=== PATIENT | female | born 1965 | race American Indian/Alaskan Native ===

== ENCOUNTER 2018-09-07 07:36 | Emergency (ER) | payer MEDICARE ==
--- NOTE | 2018-09-07 08:54 | XRay Report ---
RIGHT KNEE, 3 views: History: Fall. The bony architecture is intact without evidence of fracture or dislocation. No significant soft tissue abnormality is seen. IMPRESSION: Unremarkable right knee.
--- NOTE | 2018-09-07 09:10 | Emergency Department Report ---
ED Lower Extremity HPI - General Chief Complaint: Extremity Injury, Lower Stated Complaint: RT KNEE INJURY/PAIN Time Seen by Provider: 09/07/18 08:24 Source: patient Mode of arrival: Ambulatory Limitations: No Limitations - History of Present Illness Initial Comments: She is a 52-year-old female who presents to the ED stating she tripped and accidentally fell yesterday while she was at dialysis. Patient states that pain localized to her anterior knee on the right. Patient states that she is able to walk without any problems. Patient states that pain is throbbing in nature and aching. Patient states this felt worse today than he did yesterday so she came in to be evaluated. She denies hitting her head or loss of consciousness after fall. MD Complaint: knee injury - Related Data Previous Rx's Medication Instructions Recorded Last Taken Type Naproxen [Naprosyn] 500 mg PO BID #30 tablet 09/07/18 Unknown Rx Allergies Allergy/AdvReac Type Severity Reaction Status Date / Time pollen extracts Allergy Unknown Verified 09/07/18 07:38 ED Review of Systems ROS: Stated complaint: RT KNEE INJURY/PAIN Other details as noted in HPI Comment: All other systems reviewed and negative ED Past Medical Hx - Medications Home Medications: Home Medications Medication Instructions Recorded Confirmed Last Taken Type Naproxen [Naprosyn] 500 mg PO BID #30 tablet 09/07/18 Unknown Rx ED Physical Exam - General Limitations: No Limitations General appearance: alert, in no apparent distress - Head Head exam: Present: atraumatic, normocephalic - Eye Eye exam: Present: normal appearance - ENT ENT exam: Present: mucous membranes moist - Neck Neck exam: Present: normal inspection - Respiratory Respiratory exam: Present: normal lung sounds bilaterally. Absent: respiratory distress - Cardiovascular Cardiovascular Exam: Present: regular rate, normal rhythm. Absent: systolic murmur, diastolic murmur, rubs, gallop - GI/Abdominal GI/Abdominal exam: Present: soft, normal bowel sounds - Extremities Exam Extremities exam: Present: normal inspection - Expanded Lower Extremity Exam Right Knee exam: Present: normal inspection, full ROM, tenderness (anterior right knee). Absent: swelling, abrasion, laceration, deformity, dislocation, erythema Lower Leg exam: Present: normal inspection, full ROM Ankle exam: Present: normal inspection, full ROM Foot/Toe exam: Present: normal inspection, full ROM Neuro vascular tendon exam: Present: no vascular compromise Gait: Positive: observed and normal - Back Exam Back exam: Present: normal inspection - Neurological Exam Neurological exam: Present: alert, oriented X3 - Psychiatric Psychiatric exam: Present: normal affect, normal mood - Skin Skin exam: Present: warm, dry, intact, normal color. Absent: rash ED Course Vital Signs 09/07/18 07:52 Temperature 98.1 F Pulse Rate 116 H Respiratory 20 Rate Blood Pressure 148/98 [Right] O2 Sat by Pulse 95 Oximetry ED Lower Extremity MDM - Radiology Data Radiology results: report reviewed, image reviewed RIGHT KNEE, 3 views: History: Fall. The bony architecture is intact without evidence of fracture or dislocation. No significant soft tissue abnormality is seen. IMPRESSION: Unremarkable right knee. Transcribed By: TTR Dictated By: TONY CARDOSO JR, MD Electronically Authenticated By: TONY CARDOSO JR, MD Signed Date/Time: 09/07/18 0850 - Medical Decision Making 52-year-old female presents with knee pain. X-ray shows no acute fracture suspicion Discussed with patient to apply heat therapy 3 times a day apply compression with Slade bandage. Patient was given Slade bandage wrap prior to leaving ER. Discussed follow-up with orthopedic doctor. Discussed follow-up with her primary care physician as well. Past sensory normal ,gait is normal patient is in no acute distress. Critical care attestation.: If time is entered above; I have spent that time in minutes in the direct care of this critically ill patient, excluding procedure time. ED Disposition Clinical Impression: Fall, Right knee pain Disposition: DC-01 TO HOME OR SELFCARE Is pt being admited?: No Does the pt Need Aspirin: No Condition: Stable Instructions: Arthralgia (ED), RICE Therapy (ED) Additional Instructions: Make sure to follow up with the primary care physician as discussed. Take all your medications as you've been prescribed. If you have any worsening symptoms or develop new symptoms please return to ED immediately. Prescriptions: Naproxen [Naprosyn] 500 mg PO BID #30 tablet [facility] LAURA [Primary Care Provider] - 3-5 Days MAURA TRIVEDI MD [Staff Physician] - 3-5 Days Forms: Work/School Release Form(ED) Time of Disposition: 09:15
[2018-09-07 09:30] VITALS: BP 141/90
== END 2018-09-07 09:28 | disposition home or self-care (01) ==
LOC: ED 07:36
DX: M25.561 Pain in right knee (principal); Z91.89 Other specified personal risk factors, not elsewhere classified; W01.198A Fall on same level from slipping, tripping and stumbling with subsequent striking against other object, initial encounter; Y93.89 Activity, other specified; Y92.89 Other specified places as the place of occurrence of the external cause; Y99.8 Other external cause status
CPT/HCPCS: 99283

== ENCOUNTER 2018-11-22 10:16 | Outpatient (CLI) | payer MEDICARE | END 2018-11-22 10:17 | disposition home or self-care (01) | LOC: WOUND 10:16 | PROVIDERS: ATTEND Surgery | DX: L97.828 Non-pressure chronic ulcer of other part of left lower leg with other specified severity (principal); I12.0 Hypertensive chronic kidney disease with stage 5 chronic kidney disease or end stage renal disease; N18.6 End stage renal disease; I48.91 Unspecified atrial fibrillation | CPT/HCPCS: 99204; G0463 ==